=== PATIENT | female | born 1945 | race Caucasian/White ===

== ENCOUNTER → 2018-11-14 | Outpatient (CLI) | payer MEDICARE ==
[~2018-11-14] VITALS: Ht 167.6 cm; Wt 89.4 kg
[~2018-11-14] MED LIST: CATHETER FLUSH 10 ML SYR IV PRN
[2018-11-14 09:06] VITALS: BP 162/51
--- NOTE | 2018-11-14 21:08 | STRESS TEST ---
DATE OF SERVICE: 11/14/2018 EXERCISE MYOVIEW STRESS TEST REPORT REFERRING PHYSICIAN: Dr. Sarah Vasquez. Baseline heart rate is 75. Baseline blood pressure 120/72. Baseline EKG is sinus rhythm with no ischemic changes. In summary, the patient was injected with 10.43 mCi of technetium-99 Myoview and the resting images were obtained. Then, the patient started exercising with a baseline heart rate, blood pressure and EKG mentioned above. The patient was able to exercise for a total of 3 minutes on standard Sarkis protocol. Test was terminated due to fatigue. The patient was given a peak stress dose of 30.9 mCi of technetium-99 Myoview. EKG did not show any ischemic changes. Peak blood pressure 162/51. During recovery, heart rate and blood pressure returned to baseline. EKG returned to baseline. The resting and stress images were reviewed and compared in the short axis, horizontal long axis, and vertical long axis views. Review of the images showed small left ventricle with good radiotracer uptake with no significant ischemia or infarction. SSS is 3, SDS 3, TID value 0.93. On the gated images, the left ventricle appeared to be normal size with normal contractility. Calculated ejection fraction 75%. IN CONCLUSION: 1. Poor exercise tolerance, a total of 3 minutes on standard Sarkis protocol, total of 4.6 mets. 2. Appropriate heart rate and blood pressure response to exercise returned to baseline during recovery. 3. Minimal nondiagnostic EKG changes with exercise returned to baseline during recovery. 4. No ischemia or infarction on SPECT images. 5. Normal left ventricular size with normal contractility. Calculated ejection fraction 75%. Job ID: [id number] DocumentID: [id number] Dictated Date: 11/14/2018 16:59:11 Compliance Review Specialist Date: 11/14/2018 21:07:18 Dictated By: YEVGENIY GONZALEZ MD
== END ==
LOC: CARD 06:43
PROVIDERS: ATTEND Internal Medicine Cardiovascular Disease
DX: R06.09 Other forms of dyspnea (principal); I10 Essential (primary) hypertension; R07.89 Other chest pain; E66.9 Obesity, unspecified; Z68.31 Body mass index [BMI] 31.0-31.9, adult
CPT/HCPCS: 78452; 93017

== ENCOUNTER → 2020-01-17 | Outpatient (CLI) | payer MEDICARE ==
[~2020-01-17] MED LIST changes: +HOLD METFORMIN - RECEIVED CONTRAST 20 ML VIAL IV SCH; +IOHEXOL 350 MG/ML 100 ML (OMNIPAQUE 350) VIAL IV ONE; +NS 100 ML (IVPB) BAG IV ONE
--- NOTE | 2020-01-17 09:23 | Diagnostic Imaging Report ---
PROCEDURE: CT abdomen and pelvis with contrast. TECHNIQUE: Multiple contiguous axial images were obtained through the abdomen and pelvis after administration of intravenous contrast. Auto Exposure Controls were utilized during the CT exam to meet ALARA standards for radiation dose reduction. INDICATION: Right-sided abdominal pain. Patient status post right nephrectomy 5 years ago due to renal cell carcinoma. No prior studies are available for comparison. The lung bases are clear. Liver does demonstrate some generalized low density suggestive of hepatic steatosis. There is a circumscribed low-density lesion left lobe liver measuring 7 mm, most suggestive of a cyst. Gallbladder appears to be surgically absent. Bile ducts are somewhat prominent however this could be owing to post cholecystectomy. Pancreas and spleen are unremarkable. No adrenal mass is detected. Left kidney is unremarkable. The right kidney is surgically absent. No definite residual or recurrent mass in the right renal fossa is detected. Aorta is heavily calcified but not aneurysmal. No central retroperitoneal or mesenteric lymphadenopathy is detected. Bowel loops are normal caliber. There is no obstruction. There is diverticulosis of the descending and sigmoid colon but no evidence of acute diverticulitis. No iliac or inguinal lymphadenopathy is detected. No free fluid or fluid collection in the abdomen or pelvis is identified. The bladder is unremarkable. No osteolytic lesions are seen. IMPRESSION: 1. Status post right nephrectomy. No residual recurrent mass or evidence of metastatic disease is detected. 2. Hepatic steatosis and probable left lobe hepatic cyst. 3. Uncomplicated diverticulosis. Dictated by: Dictated on workstation # [id number]
== END ==
LOC: RAD FS 08:12
PROVIDERS: ATTEND Family Medicine
DX: K57.30 Diverticulosis of large intestine without perforation or abscess without bleeding (principal); K76.0 Fatty (change of) liver, not elsewhere classified; Z85.528 Personal history of other malignant neoplasm of kidney
CPT/HCPCS: 74177

== ENCOUNTER → 2020-11-12 | Outpatient (CLI) | payer MEDICARE ==
[2020-11-12 11:45] LABS: BASOPHILS % (AUTO) 0 % (0-10); HEMATOCRIT 31 % (35-52); HEMOGLOBIN 8.9 G/DL (11.5-16.0); LYMPHOCYTES % (AUTO) 26 % (12-44); MEAN CORPUSCULAR HEMOGLOBIN 21 PG (25-34); MEAN CORPUSCULAR HGB CONC 29 G/DL (32-36); MEAN CORPUSCULAR VOLUME 73 FL (80-99); MEAN PLATELET VOLUME 9.1 FL (7.4-10.4); MONOCYTES % (AUTO) 9 % (0-12); NEUTROPHILS % (AUTO) 62 % (42-75); PLATELET COUNT 534 10^3/uL (130-400); WHITE BLOOD COUNT 11.2 10^3/uL (4.3-11.0)
[2020-11-12 11:46] LABS: BASOPHILS # (AUTO) 0.1 10^3/uL (0.0-0.1); EOSINOPHILS # (AUTO) 0.2 10^3/uL (0.0-0.3); EOSINOPHILS % (AUTO) 2 % (0-10)
[2020-11-12 12:01] LABS: BILIRUBIN,TOTAL 0.3 MG/DL (0.1-1.0); CALCIUM 9.4 MG/DL (8.5-10.1); CREATININE SERUM 1.53 MG/DL (0.60-1.30); POTASSIUM 4.4 MMOL/L (3.6-5.0)
[2020-11-12 12:02] LABS: ALBUMIN 4.1 GM/DL (3.2-4.5); TOTAL PROTEIN 7.7 GM/DL (6.4-8.2)
--- NOTE | 2020-11-12 14:02 | Diagnostic Imaging Report ---
PROCEDURE: CT abdomen and pelvis without contrast. TECHNIQUE: Multiple contiguous axial images were obtained through the abdomen and pelvis without the use of intravenous contrast. Auto Exposure Controls were utilized during the CT exam to meet ALARA standards for radiation dose reduction. INDICATION: Right-sided abdominal pain. Patient has history of right renal cell carcinoma with right nephrectomy. COMPARISON: Correlation is made with prior CT from 01/17/2020. FINDINGS: Lung bases are clear. Liver is unremarkable. Gallbladder appears to be surgically absent. Pancreas and spleen are unremarkable. Postoperative changes from right nephrectomy are again noted. No definite residual recurrent mass is seen. Bilateral adrenal glands and left kidney are unremarkable. Aorta is heavily calcified but nonaneurysmal. No central retroperitoneal or mesenteric lymphadenopathy is seen. Bowel loops demonstrate diverticulosis of the sigmoid and descending colon. There is no evidence of diverticulitis. There is no obstruction. No free fluid or fluid collection is seen. The bladder is unremarkable. Uterus appears to be surgically absent. No pelvic lymphadenopathy is identified. Bony structures are unremarkable. IMPRESSION: 1. Status post right nephrectomy. No residual or recurrent tumor evidence of metastatic disease is detected. 2. Uncomplicated diverticulosis. Dictated by: Dictated on workstation # [id number]
== END ==
LOC: RAD FS 11:14
PROVIDERS: ATTEND Family Medicine
DX: K57.30 Diverticulosis of large intestine without perforation or abscess without bleeding (principal); Z85.53 Personal history of malignant neoplasm of renal pelvis; Z90.5 Acquired absence of kidney
CPT/HCPCS: 36415; 74176; 80053; 83690; 85025

== ENCOUNTER → 2020-11-13 | Outpatient (CLI) | payer MEDICARE | LOC: LAB FS 11:49 | PROVIDERS: ATTEND Family Medicine | DX: D64.9 Anemia, unspecified (principal) | CPT/HCPCS: 36415; 82728; 83540; 83550 ==

== ENCOUNTER → 2020-11-16 | Outpatient (CLI) | payer MEDICARE ==
[2020-11-16 13:09] LABS: HEMATOCRIT 28 % (35-52); MEAN CORPUSCULAR HEMOGLOBIN 21 PG (25-34); MEAN CORPUSCULAR HGB CONC 28 G/DL (32-36); MEAN CORPUSCULAR VOLUME 74 FL (80-99); PLATELET COUNT 445 10^3/uL (130-400); WHITE BLOOD COUNT 9.8 10^3/uL (4.3-11.0)
[2020-11-16 13:10] LABS: BASOPHILS % (AUTO) 0 % (0-10); EOSINOPHILS # (AUTO) 0.1 10^3/uL (0.0-0.3); EOSINOPHILS % (AUTO) 1 % (0-10); LYMPHOCYTES # (AUTO) 2.3 X 10^3 (1.0-4.0); LYMPHOCYTES % (AUTO) 24 % (12-44); MEAN PLATELET VOLUME 9.2 FL (7.4-10.4); MONOCYTES # (AUTO) 1.3 X 10^3 (0.0-1.0); MONOCYTES % (AUTO) 13 % (0-12); NEUTROPHILS % (AUTO) 61 % (42-75)
== END ==
LOC: LAB FS 12:42
PROVIDERS: ATTEND Family Medicine
DX: D64.9 Anemia, unspecified (principal)
CPT/HCPCS: 36415; 82274; 85025

== ENCOUNTER → 2020-11-23 | Outpatient (CLI) | payer MEDICARE ==
[2020-11-23 09:01] LABS: ALBUMIN 3.6 GM/DL (3.2-4.5); BILIRUBIN,TOTAL 0.2 MG/DL (0.1-1.0); CALCIUM 8.6 MG/DL (8.5-10.1); CREATININE SERUM 1.23 MG/DL (0.60-1.30); POTASSIUM 3.8 MMOL/L (3.6-5.0); TOTAL PROTEIN 6.7 GM/DL (6.4-8.2)
== END ==
LOC: LAB FS 11-20 11:07
PROVIDERS: ATTEND Internal Medicine Cardiovascular Disease
DX: E78.2 Mixed hyperlipidemia (principal)
CPT/HCPCS: 36415; 80053; 80061

== ENCOUNTER 2020-12-08 05:50 | Outpatient (RCR) | payer MEDICARE ==
[~2020-12-08] VITALS: Ht 167.7 cm; Wt 86.2 kg
[2020-12-08] MEDS ORDERED: NEXIUM (15:17)
== END 2020-12-09 08:29 | disposition home or self-care (01) ==
LOC: PREOP 05:50 → EDSTATUS 09:45 → PREOP 12-09 08:29
PROVIDERS: ATTEND Surgery
DX: Z01.818 Encounter for other preprocedural examination (principal)

== ENCOUNTER → 2020-12-11 | Outpatient (CLI) | payer MEDICARE ==
[~2020-12-11] MED LIST changes: -CATHETER FLUSH 10 ML SYR IV PRN; -HOLD METFORMIN - RECEIVED CONTRAST 20 ML VIAL IV SCH; -IOHEXOL 350 MG/ML 100 ML (OMNIPAQUE 350) VIAL IV ONE; +NEXIUM; -NS 100 ML (IVPB) BAG IV ONE
== END ==
LOC: LAB FS 10:00
PROVIDERS: ATTEND Surgery
DX: Z01.812 Encounter for preprocedural laboratory examination (principal); K21.9 Gastro-esophageal reflux disease without esophagitis; D50.9 Iron deficiency anemia, unspecified; Z20.822 Contact with and (suspected) exposure to COVID-19
CPT/HCPCS: 87636

== ENCOUNTER 2020-12-15 09:44 | Day surgery (SDC) | payer MEDICARE ==
[~2020-12-15] VITALS: Ht 167.7 cm; Wt 86.2 kg
[2020-12-15] VITALS (9 sets, daily range): BP systolic 110–144; BP diastolic 61–84
[~2020-12-15 09:44] MED LIST changes: +LACTATED RINGERS 1,000 ML IV ONE
[2020-12-15] MEDS ORDERED: LACTATED RINGERS 1,000 ML IV STA (09:50)
--- NOTE | 2020-12-15 09:57 | Progress Note-Pre Operative ---
Pre-Operative Progress Note H&P Reviewed The H&P was reviewed, patient examined and no changes noted. Date Seen by Provider: Dec 15, 2020 Time Seen by Provider: 09:57 Date H&P Reviewed: Dec 15, 2020 Time H&P Reviewed: 09:57 Pre-Operative Diagnosis: gerd iron def anemia VIKRAM MARINO DO Dec 15, 2020 09:57
[2020-12-15] MEDS ORDERED: HURRICAINE EXT TUBE (BENZOCAINE) XX PRN (10:00)
[2020-12-15] MEDS ORDERED: MIDAZOLAM 2 MG/2 ML (VERSED) VIAL ONE (10:13)
[2020-12-15] MEDS ORDERED: PROPOFOL INJECTION 50 ML IV ONE ×2 (10:13→10:45)
--- NOTE | 2020-12-15 11:15 | Progress Note-Post Operative ---
Post-Operative Progess Note Surgeon (s)/Monitoring Tech (s) Surgeon VIKRAM MARINO DO Monitoring Tech: na Pre-Operative Diagnosis gerd iron def anemia Post-Operative Diagnosis normal egd, colon polyps, diverticulosis Procedure & Operative Findings Date of Procedure 12/15/20 Procedure Performed/Findings egd c biopsies, colonoscopy c hot bx polypectomy x 5 Anesthesia Type per ground control approach technician Estimated Blood Loss Estimated blood loss (mL): none Specimens/Packing Specimens Removed antrum, ge, colon polyps VIKRAM MARINO DO Dec 15, 2020 11:15
--- NOTE | 2020-12-15 11:16 | Discharge Inst-Simple/Standard ---
Discharge Inst-Standard Patient Instructions/Follow Up Plan of Care/Instructions/FU: 2 weeks Cara Activity as Tolerated: Yes Discharge Diet: Regular Diet (high fiber) VIKRAM MARINO DO Dec 15, 2020 11:16
--- NOTE | 2020-12-15 14:21 | Anesthesia-General Post-Op ---
MAC Patient Condition Mental Status/LOC: Same as Preop Cardiovascular: Satisfactory Nausea/Vomiting: Absent Respiratory: Satisfactory Pain: Controlled Complications: Absent Post Op Complications Complications None Follow Up Care/Instructions Patient Instructions None needed. Anesthesiology Discharge Order Discharge Order Patient is doing well, no complaints, stable vital signs, no apparent adverse anesthesia problems. No complications reported per nursing. JOHN MADISON CRNA Dec 15, 2020 14:21
--- NOTE | 2020-12-15 15:00 | OPERATIVE REPORT ---
DATE OF SERVICE: 12/15/2020 PREOPERATIVE DIAGNOSES: Gastroesophageal reflux disease, iron deficiency anemia. POSTOPERATIVE DIAGNOSES: Normal esophagogastroduodenoscopy, colon polyps, diverticulosis. PROCEDURE: EGD with biopsies, colonoscopy with hot biopsy polypectomy x5. SURGEON: Vikram Marroquin DO ANESTHESIA: Per SHIPPING AND RECEIVING CLERK. ESTIMATED BLOOD LOSS: None. COMPLICATIONS: None. SPECIMENS: Antrum, GE junction and colon polyps. INDICATIONS: The patient is a 75-year-old female with iron deficiency anemia, GERD symptoms. She understands risks and benefits of procedure and wishes to proceed. Consent was signed in the chart. DESCRIPTION OF PROCEDURE: The patient was taken to the endoscopy suite, placed in left lateral recumbent position. Timeout was performed. Scope was inserted in mouth, down the esophagus, stomach and into the duodenum without difficulty. There were no polyps, masses or ulcerations within the duodenum. Scope was slowly retracted back into the stomach where it was further insufflated. No polyps, masses or ulcerations. Biopsy of the antrum was obtained. Scope was retroflexed noting no other pathology. Scope was returned to its normal position, slowly withdrawn to distal esophagus. Biopsy of the GE junction was obtained. Scope was then slowly retracted back noting no other pathology. Digital rectal exam was performed. No palpable polyps, masses or ulcerations. Scope was inserted in the rectum, advanced all the way to cecum with minimal difficulty. Prep was adequate with irrigation and suction. Scope was then slowly retracted back. There were no polyps, masses or ulcerations within the cecum, ascending colon. In the transverse colon, three polyps were present, which hot biopsy polypectomy was performed. Scope was continuously retracted back. No polyps, masses or ulcerations within the descending colon and sigmoid colon. Another small polyp was present, which hot biopsy polypectomy was performed. Scope was then continuously retracted back to the rectum where another small polyp was present, which hot biopsy polypectomy was performed. Scope was also retroflexed noting some internal hemorrhoids. No other pathology noted. Scope was returned to its normal position, slowly withdrawn until completely removed. The patient tolerated procedure well without any complications. She was taken to recovery room in stable condition. RECOMMENDATIONS: The patient will need repeat colonoscopy in 5 years if any issues before that be seen at that time. Recommend continue on Nexium for her reflux. Also with diverticulosis, would recommend high fiber diet. Any problems prior to next scheduled scope would be reevaluated at that time. If continues to have iron deficiency anemia, will recommend having a capsule endoscopy performed. Job ID: [id number] DocumentID: [id number] Dictated Date: 12/15/2020 11:19:23 Administrative Support Specialist Date: 12/15/2020 14:59:43 Dictated By: VIKRAM MARROQUIN DO
== END 2020-12-15 12:00 | disposition home or self-care (01) ==
LOC: ENDO 09:44
PROVIDERS: ATTEND Surgery
DX: D12.3 Benign neoplasm of transverse colon (principal); D12.5 Benign neoplasm of sigmoid colon; D12.8 Benign neoplasm of rectum; D50.9 Iron deficiency anemia, unspecified; K29.50 Unspecified chronic gastritis without bleeding; K21.00 Gastro-esophageal reflux disease with esophagitis, without bleeding; I10 Essential (primary) hypertension; E66.9 Obesity, unspecified; Z68.30 Body mass index [BMI] 30.0-30.9, adult; Z79.899 Other long term (current) drug therapy; Z87.891 Personal history of nicotine dependence

== ENCOUNTER → 2020-12-28 | Outpatient (CLI) | payer MEDICARE ==
[~2020-12-28] MED LIST changes: -LACTATED RINGERS 1,000 ML IV ONE
[2020-12-28 09:26] LABS: HEMATOCRIT 35 % (35-52); HEMOGLOBIN 9.9 G/DL (11.5-16.0); MEAN CORPUSCULAR HEMOGLOBIN 22 PG (25-34); MEAN CORPUSCULAR HGB CONC 28 G/DL (32-36); MEAN CORPUSCULAR VOLUME 76 FL (80-99); MEAN PLATELET VOLUME 9.8 FL (7.4-10.4); PLATELET COUNT 490 10^3/uL (130-400); WHITE BLOOD COUNT 11.4 10^3/uL (4.3-11.0)
[2020-12-28 09:27] LABS: BASOPHILS # (AUTO) 0.1 10^3/uL (0.0-0.1); BASOPHILS % (AUTO) 0 % (0-10); EOSINOPHILS # (AUTO) 0.3 10^3/uL (0.0-0.3); EOSINOPHILS % (AUTO) 3 % (0-10); LYMPHOCYTES # (AUTO) 2.7 X 10^3 (1.0-4.0); LYMPHOCYTES % (AUTO) 24 % (12-44); MONOCYTES # (AUTO) 1.1 X 10^3 (0.0-1.0); MONOCYTES % (AUTO) 10 % (0-12); NEUTROPHILS # (AUTO) 7.2 X 10^3 (1.8-7.8); NEUTROPHILS % (AUTO) 63 % (42-75)
== END ==
LOC: LAB FS 09:11
PROVIDERS: ATTEND Family Medicine
DX: D50.9 Iron deficiency anemia, unspecified (principal)
CPT/HCPCS: 36415; 85025

== ENCOUNTER → 2021-06-18 | Outpatient (CLI) | payer MEDICARE ==
[2021-06-18 12:18] LABS: WHITE BLOOD COUNT 11.9 10^3/uL (4.3-11.0)
[2021-06-18 12:19] LABS: BASOPHILS % (AUTO) 1 % (0-10); EOSINOPHILS % (AUTO) 2 % (0-10); HEMATOCRIT 33 % (35-52); HEMOGLOBIN 9.5 g/dL (11.5-16.0); LYMPHOCYTES % (AUTO) 28 % (12-44); MEAN CORPUSCULAR HEMOGLOBIN 21 pg (25-34); MEAN CORPUSCULAR HGB CONC 28 g/dL (32-36); MEAN CORPUSCULAR VOLUME 74 fL (80-99); MEAN PLATELET VOLUME 10.3 fL (9.0-12.2); MONOCYTES % (AUTO) 10 % (0-12); NEUTROPHILS % (AUTO) 58 % (42-75); PLATELET COUNT 504 10^3/uL (130-400)
[2021-06-18 12:20] LABS: BASOPHILS # (AUTO) 0.7 10^3/uL (0.0-0.1); EOSINOPHILS # (AUTO) 0.2 10^3/uL (0.0-0.3); LYMPHOCYTES # (AUTO) 3.4 X 10^3 (1.0-4.0); MONOCYTES # (AUTO) 1.2 X 10^3 (0.0-1.0); NEUTROPHILS # (AUTO) 6.9 X 10^3 (1.8-7.8)
--- NOTE | 2021-06-18 12:34 | Diagnostic Imaging Report ---
INDICATION: Chest discomfort PA and lateral views of the chest are obtained. COMPARISON: No previous study is available for comparison at this time. FINDINGS: Heart size and pulmonary vasculature are within normal limits, and the lungs are clear, bilaterally. IMPRESSION: Unremarkable chest. Dictated by: Dictated on workstation # [id number]
[2021-06-18 12:56] LABS: ALBUMIN 3.7 GM/DL (3.2-4.5); BILIRUBIN,TOTAL 0.3 MG/DL (0.1-1.0); CALCIUM 9.1 MG/DL (8.5-10.1); CREATININE SERUM 1.47 MG/DL (0.60-1.30); TOTAL PROTEIN 7.6 GM/DL (6.4-8.2)
== END ==
LOC: RAD FS 11:56
PROVIDERS: ATTEND Family Medicine
DX: I95.1 Orthostatic hypotension (principal); R07.89 Other chest pain
CPT/HCPCS: 36415; 71046; 80053; 85025

== ENCOUNTER → 2021-08-17 | Outpatient (CLI) | payer MEDICARE ==
--- NOTE | 2021-08-17 10:31 | Diagnostic Imaging Report ---
Indication: Right shoulder pain. FINDINGS: 4 views. The glenohumeral joint and AC joint are in good alignment. Humeral head is smooth. There are no hypertrophic changes about the humeral head or glenoid. No fractures. AC joint shows mild hypertrophic arthritic change. No soft tissue calcifications are seen about the hip. IMPRESSION: 1. 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 Dictated by: Dictated on workstation # [id number]
== END ==
LOC: RAD FS 08:30
PROVIDERS: ATTEND Nurse Practitioner
DX: M19.011 Primary osteoarthritis, right shoulder (principal)
CPT/HCPCS: 73030

== ENCOUNTER → 2021-11-09 | Outpatient (CLI) | payer MEDICARE | LOC: LABNPT 14:46 | PROVIDERS: ATTEND Family Medicine | DX: K57.30 Diverticulosis of large intestine without perforation or abscess without bleeding (principal); R03.0 Elevated blood-pressure reading, without diagnosis of hypertension | CPT/HCPCS: 87088 ==

== ENCOUNTER 2022-03-11 13:17 | Emergency (ER) | payer MEDICARE ==
[~2022-03-11] VITALS: Ht 167.7 cm; Wt 86.2 kg
--- NOTE | 2022-03-11 13:24 | ED Cardiac General ---
History of Present Illness General Stated Complaint: CHEST PAIN History of Present Illness Date Seen by Provider: Mar 11, 2022 Time Seen by Provider: 13:19 Initial Comments 77-year-old female presents with recurrent on and off chest pain that happens multiple times a day has been going on for at least a month. Patient has seen her provider 1 time. She comes in today because she feels like maybe is getting more frequent. She does have some occasional associated shortness of breath with it. She denies any nausea, vomiting, fever, chills. She feels that gets worse with exertion especially if she should get a little short of breath. Audrey ent is currently not on any medications. She does have a remote smoking history. She had a little bit of a headache today that also felt she had to come in but that has resolved. She reports that her chest pain has basically resolved. She does take 2 full-strength baby aspirin when it happens and took 2 prior to arrival Allergies and Home Medications Allergies Coded Allergies: No Known Drug Allergies (Unverified , 11/14/18) Patient Home Medication List Home Medication List Reviewed: Yes Albuterol Sulfate (Ventolin Hfa) 1 Puff Puff, 2 PUFF INH Q4H Prescribed by: NORRIS RUTHERFORD on 03/11/22 1440 [Otc Nexium] , DAILY, (Reported) Entered as Reported by: ALLIE COLLINS on 12/08/20 1517 Review of Systems Review of Systems Constitutional: No chills, No fever Respiratory: Denies Cough, Denies Shortness of Air; SOA With Exertion Cardiovascular: Chest Pain; Denies Irregular Heart Rate, Denies Lightheadedness Gastrointestinal: Denies Abdominal Pain, Denies Nausea, Denies Vomiting Genitourinary: No Symptoms Reported Musculoskeletal: no symptoms reported Skin: no symptoms reported Psychiatric/Neurological: No Symptoms Reported Endocrine: No Symptoms Reported Physical Exam Vital Signs Vital Signs - First Documented 03/11/22 13:20 Temp 36.1 Pulse 86 Resp 24 B/P (MAP) 193/83 (119) Pulse Ox 96 O2 Delivery Room Air Capillary Refill : Height, Weight, BMI Height: '" Weight: lbs. oz. kg; BMI Method: General Appearance: No Apparent Distress, WD/WN Neck: Non Tender, Supple Respiratory: Lungs Clear, Normal Breath Sounds Cardiovascular: Regular Rate, Rhythm, No Edema Gastrointestinal: Non Tender, Soft Extremity: Normal Capillary Refill, Normal Inspection, Normal Range of Motion Neurologic/Psychiatric: Alert, Oriented x3, Normal Mood/Affect, proof technician helper II-XII Norm as Tested Skin: Normal Color, Warm/Dry Progress/Results/Core Measures Results/Orders Lab Results Laboratory Tests Test 03/11/22 13:30 Range/Units White Blood Count 10.9 4.3-11.0 10^3/uL Red Blood Count 4.41 3.80-5.11 10^6/uL Hemoglobin 9.4 L 11.5-16.0 g/dL Hematocrit 32 L 35-52 % Mean Corpuscular Volume 72 L 80-99 fL Mean Corpuscular Hemoglobin 21 L 25-34 pg Mean Corpuscular Hemoglobin Concent 30 L 32-36 g/dL Red Cell Distribution Width 18.8 H 10.0-14.5 % Platelet Count 519 H 130-400 10^3/uL Mean Platelet Volume 9.4 9.0-12.2 fL Immature Granulocyte % (Auto) 0 % Neutrophils (%) (Auto) 57 42-75 % Lymphocytes (%) (Auto) 30 12-44 % Monocytes (%) (Auto) 11 0-12 % Eosinophils (%) (Auto) 1 0-10 % Basophils (%) (Auto) 1 0-10 % Neutrophils # (Auto) 6.2 1.8-7.8 10^3/uL Lymphocytes # (Auto) 3.3 1.0-4.0 10^3/uL Monocytes # (Auto) 1.2 H 0.0-1.0 10^3/uL Eosinophils # (Auto) 0.2 0.0-0.3 10^3/uL Basophils # (Auto) 0.1 0.0-0.1 10^3/uL Immature Granulocyte # (Auto) 0.0 0.0-0.1 10^3/uL Prothrombin Time 14.3 12.2-14.7 SEC INR Comment 1.1 0.8-1.4 Activated Partial Thromboplast Time 31 24-35 SEC Sodium Level 136 135-145 MMOL/L Potassium Level 4.1 3.6-5.0 MMOL/L Chloride Level 100 98-107 MMOL/L Carbon Dioxide Level 22 21-32 MMOL/L Anion Gap 14 5-14 MMOL/L Blood Urea Nitrogen 14 7-18 MG/DL Creatinine 1.19 0.60-1.30 MG/DL Estimat Glomerular Filtration Rate 48 BUN/Creatinine Ratio 12 Glucose Level 90 70-105 MG/DL Calcium Level 9.0 8.5-10.1 MG/DL Corrected Calcium 9.0 8.5-10.1 MG/DL Magnesium Level 2.0 1.6-2.4 MG/DL Total Bilirubin 0.4 0.1-1.0 MG/DL Aspartate Amino Transf (AST/SGOT) 25 5-34 U/L Alanine Aminotransferase (ALT/SGPT) 14 0-55 U/L Alkaline Phosphatase 130 40-136 U/L Myoglobin 54.0 <58.0 NG/ML Troponin I < 0.30 <0.30 NG/ML Pro-B-Type Natriuretic Peptide 91.0 <450.0 PG/ML Total Protein 7.3 6.4-8.2 GM/DL Albumin 4.0 3.2-4.5 GM/DL My Orders Orders - RUTHERFORD,NORRIS L DO Cbc With Automated Diff (03/11/22 13:24) Magnesium (03/11/22 13:24) Chest 1 View Ap/Pa Only (03/11/22 13:24) Ekg Tracing (03/11/22 13:24) Comprehensive Metabolic Panel (03/11/22 13:24) Myoglobin Serum (03/11/22 13:24) Protime With Inr (03/11/22 13:24) Partial Thromboplastin Time (03/11/22 13:24) Monitor-Rhythm Ecg Trace Only (03/11/22 13:24) Ed Iv/Invasive Line Start (03/11/22 13:24) Troponin I Fs (03/11/22 13:24) Probnp Fs (03/11/22 13:24) Albuterol/Ipra Inhalation Soln (Duoneb I (03/11/22 14:15) Svn Small Volume Nebulizer (03/11/22 14:15) Medications Given in ED Current Medications Medications Dose Ordered Sig/Torres Route Start Time Stop Time Status Last Admin Dose Admin Albuterol/ Ipratropium 3 ml ONCE ONCE INH 03/11/22 14:15 03/11/22 14:16 DC 03/11/22 14:24 3 ML Vital Signs/I&O 03/11/22 03/11/22 13:20 14:42 Temp 36.1 Pulse 86 89 Resp 24 14 B/P (MAP) 193/83 (119) 120/55 Pulse Ox 96 98 O2 Delivery Room Air Room Air Progress Progress Note : Progress Note Patient with negative EKG and troponin. Patient is x-ray shows COPD. Her sympt oms are somewhat consistent with a COPD flare or worsening COPD with exertion. I trialed her a DuoNeb and she felt that she was breathing easier and felt better. I will provide her a Ventolin inhaler. I recommend she follow-up with her primary care provider next week for further testing for COPD and further outpatient management. I also recommended a outpatient cardiology consult since her symptoms of been going on for least a month. At this time there is no acute ACS. Patient is stable for further outpatient work-up. Patient was discharged home. Initial ECG Impression Date: Mar 11, 2022 Initial ECG Impression Time: 13:22 Initial ECG Rate: 89 Initial ECG Rhythm: Normal Sinus Initial ECG Intervals: Normal Initial ECG Impression: Normal Comment no acute st elevation or changes Departure Impression Primary Impression: COPD (chronic obstructive pulmonary disease) Qualified Codes: J44.9 - Chronic obstructive pulmonary disease, unspecified Additional Impression: Chest tightness Disposition: 01 HOME, SELF-CARE Condition: Stable Departure-Patient Inst. Patient Instructions: Chronic Obstructive Pulmonary Disease (COPD) (DC), How to Use Your Metered Dose Inhaler (Adults), Chest Pain, Adult ED Add. Discharge Instructions: Please use your inhaler that was prescribed every 6 hours while awake for the next 48 hours then as needed for chest tightness and shortness of breath Please follow-up with Dr. Vasquez next week to consider cardiology consult and further testing and further long-term management for COPD Scripts Albuterol Sulfate (VENTOLIN HFA) 1 Puff Puff 2 PUFF INH Q4H, #1 EA 1 PUFF = 90 MCG Prov: NORRIS RUTHERFORD DO 03/11/22 NORRIS RUTHERFORD DO Mar 11, 2022 13:24
[2022-03-11 13:36] LABS: BASOPHILS # (AUTO) 0.1 10^3/uL (0.0-0.1); BASOPHILS % (AUTO) 1 % (0-10); EOSINOPHILS # (AUTO) 0.2 10^3/uL (0.0-0.3); EOSINOPHILS % (AUTO) 1 % (0-10); HEMATOCRIT 32 % (35-52); HEMOGLOBIN 9.4 g/dL (11.5-16.0); LYMPHOCYTES # (AUTO) 3.3 10^3/uL (1.0-4.0); LYMPHOCYTES % (AUTO) 30 % (12-44); MEAN CORPUSCULAR HEMOGLOBIN 21 pg (25-34); MEAN CORPUSCULAR HGB CONC 30 g/dL (32-36); MEAN CORPUSCULAR VOLUME 72 fL (80-99); MEAN PLATELET VOLUME 9.4 fL (9.0-12.2); MONOCYTES # (AUTO) 1.2 10^3/uL (0.0-1.0); MONOCYTES % (AUTO) 11 % (0-12); NEUTROPHILS # (AUTO) 6.2 10^3/uL (1.8-7.8); NEUTROPHILS % (AUTO) 57 % (42-75); PLATELET COUNT 519 10^3/uL (130-400); WHITE BLOOD COUNT 10.9 10^3/uL (4.3-11.0)
[2022-03-11 13:50] LABS: INR 1.1 (0.8-1.4); PROTHROMBIN TIME PATIENT 14.3 SEC (12.2-14.7)
[2022-03-11 14:00] LABS: BILIRUBIN,TOTAL 0.4 MG/DL (0.1-1.0); CREATININE SERUM 1.19 MG/DL (0.60-1.30); POTASSIUM 4.1 MMOL/L (3.6-5.0); TOTAL PROTEIN 7.3 GM/DL (6.4-8.2)
--- NOTE | 2022-03-11 14:03 | Diagnostic Imaging Report ---
INDICATION: Chest pain. Frontal chest obtained at 1:32 p.m. FINDINGS: Heart and mediastinal silhouette are normal in appearance. The lungs are clear. There is no pneumothorax or pleural fluid. There is hyperinflation. IMPRESSION: Hyperinflation compatible with COPD. No focal infiltrate or pleural fluid. Dictated by: Dictated on workstation # [id number]
[2022-03-11] MEDS ORDERED: RT-ALBUTEROL/IPRATROPIUM 3 ML (DUONEB) VIAL INH ONE (14:15)
[2022-03-11] MEDS ORDERED: RT-ALBUINH INH (14:40)
[2022-03-11 14:42] VITALS: BP 120/55
== END 2022-03-11 14:44 | disposition home or self-care (01) ==
LOC: EDUNIT# 13:17 → ER FS 13:19
DX: J44.9 Chronic obstructive pulmonary disease, unspecified (principal); Z87.891 Personal history of nicotine dependence
CPT/HCPCS: 36415; 71045; 80053; 83735; 83874; 83880; 84484; 85025; 85610; 85730; 93005; 93041

== ENCOUNTER → 2022-04-12 | Outpatient (CLI) | payer MEDICARE ==
[~2022-04-12] MED LIST changes: +RT-ALBUINH INH
== END ==
LOC: LAB FS 12:59
PROVIDERS: ATTEND Family Medicine
DX: R41.3 Other amnesia (principal); R06.09 Other forms of dyspnea; F41.1 Generalized anxiety disorder
CPT/HCPCS: 36415; 82607; 84443

== ENCOUNTER → 2022-04-21 | Outpatient (CLI) | payer MEDICARE ==
[~2022-04-21] MED LIST changes: +RT-ALBUTEROL SULF 2.5 MG/3 ML PRE-MIX VIAL INH ONE
== END ==
LOC: RT 10:05
PROVIDERS: ATTEND Family Medicine
DX: R06.09 Other forms of dyspnea (principal)
CPT/HCPCS: 94060; 94726; 94729